=== PATIENT | female | born 1995 | race African-American/Black ===

== ENCOUNTER 2017-05-19 19:09 | Emergency (ER) | payer SELFPAY ==
[~2017-05-19] VITALS: Ht 162.6 cm; Wt 50.5 kg
[2017-05-19 20:44] VITALS: BP 132/87
== END 2017-05-19 20:44 | disposition home or self-care (01) ==
LOC: EME 19:09
DX: I47.1 Supraventricular tachycardia (principal)
CPT/HCPCS: 93005; 99281; 99283